=== PATIENT | female | born 1985 | race Caucasian/White ===

== ENCOUNTER → 2016-05-11 | Outpatient (CLI) | payer MEDICAID | LOC: RAD 10:25 | PROVIDERS: ATTEND Physician Assistant | DX: M25.551 Pain in right hip (principal); Z53.8 Procedure and treatment not carried out for other reasons | CPT/HCPCS: 81025 ==

== ENCOUNTER 2017-02-24 13:14 | Emergency (ER) | payer MEDICAID ==
[2017-02-24 13:26] VITALS: BP 139/82
[2017-02-24] MEDS ORDERED: HYDROXYZINE HCL 10 MG TABLET PO ONE ×2 (13:49→14:15)
--- NOTE | 2017-02-24 13:55 | ER Document Report ---
ED General - General Chief Complaint: Anxiety Stated Complaint: DIFFICULTY BREATHING Time Seen by Provider: 02/24/17 13:45 Notes: 31-year-old female past medical history anxiety here with complaints of feeling anxious, panicking, tremors, palpitations, shortness of breath. She states that these symptoms are consistent with her usual anxiety/panic attacks. She ran out of her Klonopin and has been having these symptoms since running out. She has an appointment with her primary physician on March 04 for a refill. She denies any other symptoms. TRAVEL OUTSIDE OF THE [place] IN LAST 30 DAYS: No - Related Data Allergies/Adverse Reactions: tramadol [Tramadol] Allergy (Severe, Verified 02/24/17 13:16) Seizures buspirone [From BuSpar] Allergy (Verified 02/24/17 13:16) haloperidol [From Haldol] Allergy (Verified 02/24/17 13:16) haloperidol lactate [From Haldol] Allergy (Verified 02/24/17 13:16) Past Medical History - Social History Smoking Status: Current Every Day Smoker Chew tobacco use (# tins/day): No Frequency of alcohol use: None Drug Abuse: None Family History: Reviewed & Not Pertinent Patient has suicidal ideation: No Patient has homicidal ideation: No - Past Medical History Cardiac Medical History: Reports: Hx Hypertension Neurological Medical History: Reports: Hx Seizures - younger, resolved Renal/ Medical History: Denies: Hx Ovarian Cysts, Hx Peritoneal Dialysis Psychiatric Medical History: Reports: Hx Anxiety, Hx Attention Deficit Hyperactivity Disorder, Hx Bipolar Disorder, Hx Depression Past Surgical History: Reports: Hx Adenoidectomy, Hx Section, Hx Tonsillectomy - Immunizations Immunizations up to date: Yes Hx Diphtheria, Pertussis, Tetanus Vaccination: Yes - unk Review of Systems - Review of Systems Notes: See history of present illness for pertinent positive review of systems; otherwise all review of systems have been reviewed and are negative Physical Exam - Vital signs Vitals: Temp Pulse Resp BP Pulse Ox 98.5 F 92 18 139/82 H 99 02/24/17 13:26 02/24/17 13:26 02/24/17 13:26 02/24/17 13:26 02/24/17 13:26 - Notes Notes: PHYSICAL EXAMINATION: GENERAL: Well-appearing and in no acute distress. HEAD: Atraumatic, normocephalic. EYES: Pupils equal round and reactive to light, extraocular movements intact, sclera anicteric, conjunctiva are normal. ENT: nares patent, Moist mucous membranes. NECK: Normal range of motion, supple without lymphadenopathy LUNGS: CTAB and equal. No wheezes rales or rhonchi. HEART: Regular rate and rhythm without murmurs EXTREMITIES: Normal range of motion, no pitting edema. No cyanosis. NEUROLOGICAL: Cranial nerves grossly intact. Normal sensory/motor exams. PSYCH: Appears mildly anxious SKIN: Warm, Dry, normal turgor, no rashes or lesions noted Course - Re-evaluation Re-evalutation: 02/24/17 13:54 MEDICAL DECISION MAKING: Concern for anxiety/panic attacks Low clinical suspicion for acute emergent pathology Will give a dose of hydroxyzine here and prescription same Instructed follow-up PCP next day or few Patient understands and agrees to the plan of care - Vital Signs Vital signs: Temp Pulse Resp BP Pulse Ox 98.5 F 92 18 139/82 H 99 02/24/17 13:26 02/24/17 13:26 02/24/17 13:26 02/24/17 13:26 02/24/17 13:26 Discharge - Discharge Clinical Impression: Anxiety Condition: Good Disposition: HOME, SELF-CARE Instructions: Anxiety ([facility] [place]) Additional Instructions: Use the prescribed medication as needed for your symptoms. You were seen in the emergency department at [facility]. If you were given any sedating medications, be sure not to operate heavy machinery (example - driving ) and be sure you are not too sedated to walk appropriately. Please followup with your primary physician in the next few days for further management/ evaluation. Please return to the emergency department for worsening of symptoms or any symptom that you deem to be concerning or life-threatening. Thank you for allowing us to be part of your care. Prescriptions: Hydroxyzine HCl 50 mg PO BIDP PRN #20 tablet PRN Reason: Anxiety
== END 2017-02-24 14:15 | disposition home or self-care (01) ==
LOC: ER 13:14
DX: F41.9 Anxiety disorder, unspecified (principal); T42.4X6A Underdosing of benzodiazepines, initial encounter; F17.200 Nicotine dependence, unspecified, uncomplicated; I10 Essential (primary) hypertension; Z91.128 Patient's intentional underdosing of medication regimen for other reason; Z91.14 Patient's other noncompliance with medication regimen; Z88.5 Allergy status to narcotic agent; Z88.8 Allergy status to other drugs, medicaments and biological substances
CPT/HCPCS: 99284; J3490

== ENCOUNTER 2017-09-26 14:06 | Outpatient (CLI) | payer MEDICAID ==
[2017-09-26 14:58] LABS: APPEARANCE,URINE SLIGHTLY-CLOUDY; BILIRUBIN,URINE NEGATIVE (NEGATIVE); COLOR,URINE YELLOW; GLUCOSE, URINE NEGATIVE (NEGATIVE); KETONES,URINE NEGATIVE (NEGATIVE); LEUKOCYTE ESTERASE,URINE TRACE (NEGATIVE); NITRITE,URINE NEGATIVE (NEGATIVE); PROTEIN,URINE NEGATIVE (NEGATIVE); URINE SPECIFIC GRAVITY 1.009; UROBILINOGEN,URINE NEGATIVE mg/dL (<2.0)
[2017-09-26 15:13] LABS: URINE AMPHETAMINES SCREEN NEGATIVE; URINE BARBITURATES SCREEN NEGATIVE; URINE BENZODIAZEPINES SCREEN NEGATIVE; URINE COCAINE SCREEN NEGATIVE; URINE MARIJUANA (THC) SCREEN UNCONFIRMED POSITIVE; URINE METHADONE SCREEN NEGATIVE; URINE PHENCYCLIDINE SCREEN NEGATIVE
--- NOTE | 2017-09-26 15:55 | Non Stress Test Report ---
Non Stress Test Datetime Report Generated by CPN: 09/26/2017 15:55 DEMOGRAPHIC EGA NST: 35.1 INDICATION Indication for Study: Other Indication for Study (NST) Other: Labor Check MONITORING Monitor Explained: Monitor Explained; Test Explained; Patient Verbalized Understanding Time on Monitor: 09/26/2017 12:45 Time off Monitor: 09/26/2017 15:49 NST Duration: 184 NST INTERVENTIONS NST Interventions: PO Hydration; Reposition Patient Physician Notified NST: Dr. Holliday BABY A: [id number] BABY A Movement : Present Contraction Frequency : 0 FHR Baseline : 135 Accelerations : 15X15 Decelerations : None Variability : Moderate 6-25bpm NST Review: Meets Criteria for Reactive NST NST Review and Verified By : KIMMIE Castro Results: Reactive NST REPORT Report Trigger: Send Report
== END 2017-09-26 16:06 | disposition home or self-care (01) ==
LOC: LC 14:06
PROVIDERS: ATTEND Obstetrics & Gynecology
PROC: 4A1HXCZ Monitoring of Products of Conception, Cardiac Rate, External Approach (ICD-10-PCS; principal; 2017-09-26)
DX: O26.893 Other specified pregnancy related conditions, third trimester (principal); R10.2 Pelvic and perineal pain; Z3A.35 35 weeks gestation of pregnancy
CPT/HCPCS: 59025; 81001; 80307; G0480 ×2; 80349

== ENCOUNTER 2017-09-30 10:39 | Outpatient (CLI) | payer MEDICAID | END 2017-09-30 11:42 | disposition home or self-care (01) | LOC: LC 10:39 | PROVIDERS: ATTEND Obstetrics & Gynecology Gynecology | PROC: 4A1HXCZ Monitoring of Products of Conception, Cardiac Rate, External Approach (ICD-10-PCS; principal; 2017-09-30) | DX: O09.523 Supervision of elderly multigravida, third trimester (principal); Z3A.35 35 weeks gestation of pregnancy | CPT/HCPCS: 59025 ==

== ENCOUNTER 2017-10-07 15:24 | Outpatient (CLI) | payer MEDICAID ==
--- NOTE | 2017-10-07 15:31 | Non Stress Test Report ---
Non Stress Test Datetime Report Generated by CPN: 10/07/2017 15:31 DEMOGRAPHIC EGA NST: 35.5 INDICATION Indication for Study: Ordered by Provider MONITORING Monitor Explained: Monitor Explained; Test Explained; Patient Verbalized Understanding Monitor Explained: Monitor Explained; Test Explained; Patient Verbalized Understanding Monitor Explained Other: see flowsheet for vital signs Time on Monitor: 09/30/2017 11:14 Time off Monitor: 09/30/2017 11:40 NST Duration: 26 NST INTERVENTIONS NST Interventions: PO Hydration; Reposition Patient NST Interventions: None Physician Notified NST: Shayy Younger, RHIANNON BABY A: [id number] BABY A Movement : Present Contraction Frequency : none FHR Baseline : 125 Accelerations : 15X15 Decelerations : None Variability : Moderate 6-25bpm NST Review: Meets Criteria for Reactive NST NST Review and Verified By : Rufino Victoria RN NST Results: Reactive NST REPORT Report Trigger: Send Report
== END 2017-10-07 16:32 | disposition home or self-care (01) ==
LOC: LC 15:24
PROVIDERS: ATTEND Student in an Organized Health Care Education/Training Program
PROC: 4A1HXCZ Monitoring of Products of Conception, Cardiac Rate, External Approach (ICD-10-PCS; principal; 2017-10-07)
DX: Z34.93 Encounter for supervision of normal pregnancy, unspecified, third trimester (principal)
CPT/HCPCS: 59025

== ENCOUNTER 2017-10-08 07:05 | Inpatient (IN) | payer MEDICAID ==
[2017-10-08 07:45] LABS: APPEARANCE,URINE CLEAR; BILIRUBIN,URINE NEGATIVE (NEGATIVE); COLOR,URINE YELLOW; GLUCOSE, URINE NEGATIVE (NEGATIVE); KETONES,URINE NEGATIVE (NEGATIVE); LEUKOCYTE ESTERASE,URINE NEGATIVE (NEGATIVE); NITRITE,URINE NEGATIVE (NEGATIVE); PROTEIN,URINE NEGATIVE (NEGATIVE); URINE SPECIFIC GRAVITY 1.014
[2017-10-08 08:08] LABS: URINE AMPHETAMINES SCREEN NEGATIVE; URINE BARBITURATES SCREEN NEGATIVE; URINE BENZODIAZEPINES SCREEN NEGATIVE; URINE COCAINE SCREEN NEGATIVE; URINE METHADONE SCREEN NEGATIVE; URINE PHENCYCLIDINE SCREEN NEGATIVE
[2017-10-08] MEDS ORDERED: OXYTOCIN/NORMAL SALINE 20 UNIT/1,000 ML RTUINJ ONE ×2 (08:12→08:32)
[2017-10-08] MEDS ORDERED: MISOPROSTOL 0.2 MG TABLET ONE (08:12)
[2017-10-08] MEDS ORDERED: LIDOCAINE 1% INJ-PF (10 MG/ML) 30 ML SDV ONE (08:12)
[2017-10-08 08:21] LABS: URINE MARIJUANA (THC) SCREEN UNCONFIRMED POSITIVE
[2017-10-08] MEDS ORDERED: OXYTOCIN/NORMAL SALINE 20 UNIT/1,000 ML RTUINJ IV PRN ×2 (08:25→15:06)
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
[2017-10-08] MEDS ORDERED: NORMAL SALINE 250 ML IV PRN (08:47)
[2017-10-08] MEDS ORDERED: HYDROXYZINE PAMOATE 50 MG CAPSULE ONE (09:24)
[2017-10-08 11:05] LABS: ABSOLUTE EOSINOPHILS # (AUTO) 0.1 10^3/uL (0.0-0.6); ABSOLUTE LYMPHOCYTES (AUTO) 1.9 10^3/uL (0.5-4.7); ABSOLUTE MONOCYTES (AUTO) 0.5 10^3/uL (0.1-1.4); ABSOLUTE NEUT (AUTO) 5.7 10^3/uL (1.7-8.2); BASOPHILS % (AUTO) 0.2 % (0-2); EOSINOPHILS % (AUTO) 1.2 % (0-6); HEMATOCRIT 35.6 % (36.0-47.0); HEMOGLOBIN 12.4 g/dL (12.0-15.5); LYMPHOCYTES % (AUTO) 23.1 % (13-45); MEAN CORPUSCULAR HEMOGLOBIN 29.9 pg (27.0-33.4); MEAN CORPUSCULAR HGB CONC 34.7 g/dL (32.0-36.0); MEAN CORPUSCULAR VOLUME 86 fl (80-97); PLATELET COUNT 200 10^3/uL (150-450); RED BLOOD COUNT 4.14 10^6/uL (3.72-5.28); RED CELL DISTRIBUTION WIDTH 13.4 % (11.5-14.0); SEGMENTED NEUTROPHILS % (AUTO) 69.5 % (42-78); TOTAL CELLS COUNTED % (AUTO) 100 %; WHITE BLOOD COUNT 8.3 10^3/uL (4.0-10.5)
[2017-10-08] MEDS ORDERED: IBUPROFEN 800 MG TABLET ONE (12:23)
[2017-10-08] MEDS ORDERED: IBUPROFEN 800 MG TABLET PO SCH (15:06)
[2017-10-08] MEDS ORDERED: DIBUCAINE 1% OINTMENT 28 GM TP PRN (15:06)
[2017-10-08] MEDS ORDERED: MEASLES,MUMPS&RUBELLA VACC/PF 0.5 ML VIAL SUBCUT PRN (15:06)
[2017-10-08] MEDS ORDERED: ACETAMINOPHEN WITH CODEINE #3 TABLET PO PRN (15:06)
[2017-10-08] MEDS ORDERED: BENZOCAINE/MENTHOL AEROSOL SPRAY 56 ML TOP PRN (15:06)
[2017-10-08] MEDS ORDERED: DIPH/PERTUSS(ACELL)/TETANUS VAC/PF 0.5 ML SYR (>=10YO) IM PRN (15:06)
[2017-10-08] MEDS ORDERED: ZOLPIDEM TARTRATE 5 MG TABLET PO PRN (15:06)
[2017-10-08] MEDS: FERROUS SULFATE 325 MG TABLET PO SCH (18:26)
[2017-10-08] MEDS: DOCUSATE SODIUM 100 MG CAPSULE PO SCH (18:26)
[2017-10-08] MEDS: IBUPROFEN 800 MG TABLET PO SCH (23:20)
[2017-10-09] MEDS: IBUPROFEN 800 MG TABLET PO SCH ×3 (06:24→22:46)
[2017-10-09 07:51] LABS: HEMATOCRIT 34.3 % (36.0-47.0); HEMOGLOBIN 11.8 g/dL (12.0-15.5); MEAN CORPUSCULAR HEMOGLOBIN 29.9 pg (27.0-33.4); MEAN CORPUSCULAR HGB CONC 34.3 g/dL (32.0-36.0); MEAN CORPUSCULAR VOLUME 87 fl (80-97); PLATELET COUNT 208 10^3/uL (150-450); RED BLOOD COUNT 3.94 10^6/uL (3.72-5.28); RED CELL DISTRIBUTION WIDTH 13.9 % (11.5-14.0); WHITE BLOOD COUNT 9.8 10^3/uL (4.0-10.5)
[2017-10-09] MEDS: SENNOSIDES/DOCUSATE 8.6-50 MG 1 EACH TABLET PO SCH (11:12)
[2017-10-09] MEDS: PRENATAL VITAMIN W DHA CAPSULE PO SCH (11:12)
[2017-10-09] MEDS: FERROUS SULFATE 325 MG TABLET PO SCH ×2 (11:12→18:00)
[2017-10-09] MEDS: DOCUSATE SODIUM 100 MG CAPSULE PO SCH ×2 (11:12→18:00)
--- NOTE | 2017-10-09 13:01 | PDOC PROGRESS REPORT ---
Subjective-OB Progress Note for:: 10/09/17 Subjective: pt doing well, no concerns. She reports light bleeding, voiding well and regular diet. Physical Exam (OB) Vital Signs: Temp Pulse Resp BP Pulse Ox 98.0 F 57 L 18 116/66 99 10/08/17 19:43 10/09/17 07:23 10/09/17 07:23 10/08/17 19:43 10/09/17 07:23 Intake & Output 10/08/17 10/09/17 10/10/17 06:59 06:59 06:59 Weight 93 kg - Lochia Lochia Amount: Scant < 10 ml Lochia Color: Rubra/Red - Abdomen Description: Soft Hernia Present: No Fundal Description: Firm, Midline Fundal Height: u/u - u/2 Objective-Diagnostic Laboratory: 10/09/17 07:20 10/09/17 07:20 WBC 9.8 RBC 3.94 Hgb 11.8 L Hct 34.3 L MCV 87 MCH 29.9 MCHC 34.3 RDW 13.9 Plt Count 208 Assessment and Plan(PN) - Assessment and Plan (1) History of substance abuse Is this a current diagnosis for this admission?: Yes (2) Late care Is this a current diagnosis for this admission?: Yes (3) Patient desires vaginal after section () Is this a current diagnosis for this admission?: Yes (4) premature rupture of membranes (PPROM) with unknown onset of labor Is this a current diagnosis for this admission?: Yes - Time Spent with Patient Time with patient: Less than 15 minutes Medications reviewed and adjusted accordingly: Yes - Disposition Anticipated Discharge: Home Within: within 24 hours
[2017-10-10] MEDS: IBUPROFEN 800 MG TABLET PO SCH (05:38)
[2017-10-10 08:38] VITALS: BP 102/65
--- NOTE | 2017-10-10 09:24 | PDOC DISCHARGE SUMMARY ---
Final Diagnosis Discharge Date: 10/10/17 - Final Diagnosis (1) History of substance abuse Is this a current diagnosis for this admission?: Yes (2) Late care Is this a current diagnosis for this admission?: Yes (3) Patient desires vaginal after section () Is this a current diagnosis for this admission?: Yes (4) premature rupture of membranes (PPROM) with unknown onset of labor Is this a current diagnosis for this admission?: Yes Discharge Data - Discharge Medication Home Medications: Vit Calc,Iron,Folic [ Vitamins] 1 tab PO DAILY 09/30/17 Diphenhydramine HCl [Benadryl] 1 cap PO ASDIR PRN 10/07/17 Ranitidine HCl [Zantac 150 mg Tablet] 1 tab PO BID 10/07/17 Reason(s) for Admission: Onset of Labor, PROM Procedures: NST Intrapartum Procedure(s): Spontaneous Vaginal Delivery - Diagnosis Test Laboratory: Temp Pulse Resp BP Pulse Ox 98.0 F 57 L 18 116/66 99 10/08/17 19:43 10/09/17 07:23 10/09/17 07:23 10/08/17 19:43 10/09/17 07:23 10/08/17 10/08/17 10/09/17 07:20 10:30 07:20 RBC 4.14 3.94 Hgb 12.4 11.8 L Hct 35.6 L 34.3 L Urine Opiates Screen NEGATIVE - Discharge information/Instructions Discharge Activity: Balance Activity w/Rest, Pelvic Rest Discharge Diet: Regular Disposition: HOME, SELF-CARE Follow up with: [facility] in: 3, Weeks
[2017-10-10] MEDS: SENNOSIDES/DOCUSATE 8.6-50 MG 1 EACH TABLET PO SCH (09:52)
[2017-10-10] MEDS: PRENATAL VITAMIN W DHA CAPSULE PO SCH (09:52)
[2017-10-10] MEDS: DOCUSATE SODIUM 100 MG CAPSULE PO SCH (09:52)
[2017-10-10] MEDS: FERROUS SULFATE 325 MG TABLET PO SCH (09:52)
== END 2017-10-10 13:25 | disposition home or self-care (01) | DRG 775 ==
LOC: LC 07:05 → LR 08:18 → 2N 14:54
PROVIDERS: ADMIT Obstetrics & Gynecology Gynecology; ATTEND Obstetrics & Gynecology Gynecology
PROC: 10E0XZZ Delivery of Products of Conception, External Approach (ICD-10-PCS; principal; 2017-10-08)
PROC: 0UQMXZZ Repair Vulva, External Approach (ICD-10-PCS; 2017-10-08)
DX: O42.013 Preterm premature rupture of membranes, onset of labor within 24 hours of rupture, third trimester (principal); O34.211 Maternal care for low transverse scar from previous cesarean delivery; O71.82 Other specified trauma to perineum and vulva; N85.8 Other specified noninflammatory disorders of uterus; O99.344 Other mental disorders complicating childbirth; O69.3XX0 Labor and delivery complicated by short cord, not applicable or unspecified; F14.11 Cocaine abuse, in remission; Z3A.36 36 weeks gestation of pregnancy; Z37.0 Single live birth
CPT/HCPCS: 36415; 80307; 80349; 81005; 84112; 85025; 85027; 86592; 86850; 86900; 86901; 86920; 88307; G0480; J2590; J3490

== ENCOUNTER 2018-03-25 18:32 | Emergency (ER) | payer MEDICAID ==
[2018-03-25 22:29] LABS: APPEARANCE,URINE CLOUDY; BILIRUBIN,URINE NEGATIVE (NEGATIVE); COLOR,URINE YELLOW; GLUCOSE, URINE NEGATIVE (NEGATIVE); KETONES,URINE NEGATIVE (NEGATIVE); LEUKOCYTE ESTERASE,URINE NEGATIVE (NEGATIVE); NITRITE,URINE NEGATIVE (NEGATIVE); PROTEIN,URINE NEGATIVE (NEGATIVE); UROBILINOGEN,URINE NEGATIVE mg/dL (<2.0)
--- NOTE | 2018-03-25 22:52 | ER Document Report ---
HPI - HPI Patient complains to provider of: test Time Seen by Provider: 03/25/18 21:49 Pain Level: Denies Context: Patient is a 32-year-old female presents to the emergency department chief complaint "racing thoughts." Patient states she suffers from PTSD, major depressive disorder, bipolar, OCD. States she also feels as though her thoughts are racing. States the last time her thoughts were racing she was . States she has not taken a [id number] test. Patient also stating that she believes her urine has a strong odor. Patient's denying any dysuria or vaginal discharge. Patient states her last menstrual period was 4 months ago. Patient states she took her last Xanax pill today while in the emergency room bathroom because she felt very anxious about the fact that she may be . Patient is denying SI, HI, auditory or visual hallucinations. GCS 15. Medications: Xanax Allergies: Haldol, tramadol, BuSpar - REPRODUCTIVE Reproductive: DENIES: : - DERM Skin Color: Normal Past Medical History - General Information source: Patient - Social History Smoking Status: Unknown if Ever Smoked Frequency of alcohol use: None Drug Abuse: Marijuana, Prescription drugs Family History: Reviewed & Not Pertinent Patient has suicidal ideation: No Patient has homicidal ideation: No - Past Medical History Cardiac Medical History: Reports: Hx Hypertension Neurological Medical History: Reports: Hx Seizures - younger, resolved Renal/ Medical History: Denies: Hx Ovarian Cysts, Hx Peritoneal Dialysis Psychiatric Medical History: Reports: Hx Anxiety, Hx Attention Deficit H yperactivity Disorder, Hx Bipolar Disorder, Hx Depression Past Surgical History: Reports: Hx Adenoidectomy, Hx Section, Hx Tonsillectomy - Immunizations Immunizations up to date: Yes Hx Diphtheria, Pertussis, Tetanus Vaccination: Yes - unk Vertical Provider Document - CONSTITUTIONAL Agree With Documented VS: Yes Notes: GENERAL: Alert, interacts well. No acute distress. HEAD: Normocephalic, atraumatic. EYES: Pupils equal, round, and reactive to light. Extraocular movements intact. ENT: Oral mucosa moist, tongue midline. NECK: Full range of motion. Supple. Trachea midline. LUNGS: Clear to auscultation bilaterally, no wheezes, rales, or rhonchi. No respiratory distress. HEART: Regular rate and rhythm. No murmur ABDOMEN: Soft, non-tender. Non-distended. Bowel sounds present in all 4 quadrants. EXTREMITIES: Moves all 4 extremities spontaneously. No edema, normal radial and dorsalis pedis pulses bilaterally. No cyanosis. BACK: no cervical, thoracic, lumbar midline tenderness. No saddle anesthesia, n ormal distal neurovascular exam. No CVA tenderness noted bilaterally NEUROLOGICAL: Alert and oriented x3. Normal speech. cranial nerves II through XII grossly intact PSYCH: Flat affect, normal mood. SKIN: Warm, dry, normal turgor. No rashes or lesions noted. - INFECTION CONTROL TRAVEL OUTSIDE OF THE [place] IN LAST 30 DAYS: No Course - Re-evaluation Re-evalutation: 03/25/18 22:50 Patient's urine hCG test was negative. Patient's urine also shows no signs of infection. Discussed this at length with patient at bedside. Discussed continued care with [facility]. Patient is requesting a refill on her Xanax. Told her that I will not refill her Xanax if she has a primary care provider at [facility]. Patient voices understanding and is stable for discharge. - Vital Signs Vital signs: Temp Pulse Resp BP Pulse Ox 98.4 F 112 H 16 151/99 H 96 03/25/18 18:40 03/25/18 18:40 03/25/18 18:40 03/25/18 18:40 03/25/18 18:40 Discharge - Discharge Clinical Impression: test negative, Malodorous urine Condition: Stable Disposition: HOME, SELF-CARE Instructions: Anxiety ([facility]) Additional Instructions: Your urine test was negative. Your urine also showed no signs of infection. Please make sure [facility] with [facility] care provider for refill on your Xanax. Please return to the emergency room for any other concerning symptoms. Referrals: YAMILETH WALTERS PA-C [Primary Care Provider] - Follow up as needed [facility] [Provider Group] - Follow up as needed
[2018-03-25 22:58] VITALS: BP 135/82
== END 2018-03-25 22:58 | disposition home or self-care (01) ==
LOC: ER 18:32
DX: Z32.02 Encounter for pregnancy test, result negative (principal); R82.998 Other abnormal findings in urine; I10 Essential (primary) hypertension; F43.10 Post-traumatic stress disorder, unspecified; F31.9 Bipolar disorder, unspecified; F42.9 Obsessive-compulsive disorder, unspecified
CPT/HCPCS: 81001; 81025; 99282